=== PATIENT | male | born 1980 | race Hispanic/Latino ===

== ENCOUNTER 2025-07-23 11:53 | Emergency (ER) | payer SELFPAY ==
[~2025-07-23] VITALS: Ht 177.8 cm; Wt 67.8 kg
[2025-07-23 13:40] VITALS: PULSE 62; RESP 16; TEMP 97.5; O2SAT 99
== END 2025-07-23 13:40 | disposition home or self-care (01) ==
LOC: FSED 12:19
DX: R42 Dizziness and giddiness (principal); F41.0 Panic disorder [episodic paroxysmal anxiety]; F43.0 Acute stress reaction; F41.9 Anxiety disorder, unspecified; F17.210 Nicotine dependence, cigarettes, uncomplicated
CPT/HCPCS: 93005; 99283